=== PATIENT | male | born 2000 | race Caucasian/White ===

== ENCOUNTER 2023-07-15 21:57 | Emergency (ER) | payer BC, SELFPAY ==
[2023-07-15 22:42] VITALS: BP 145/66; PULSE 101; RESP 16; TEMP 37.2; O2SAT 96; BMI 36.3
--- NOTE | 2023-07-16 | ED.ARRPALP ---
HPI - Arrhythmia/Palpitations General Chief Complaint: Unspecified Complaint, Adult Stated Complaint: fast heartbeat Time Seen by Provider: 07/15/23 23:48 History of Present Illness HPI narrative: Patient is a 23-year-old gentleman who smoking marijuana tonight and which is not uncommon for him. Patient felt lightheaded and felt like he was having palpitations which occurred a few times prior to him coming in. Symptoms have now resolved. He is having no chest pain shortness a breath orthopnea no PND no nausea no vomiting. EKG shows sinus rhythm with rate of 102. Patient has no history of cardiovascular disease otherwise been in good health. Related Data Home Medications Medication Instructions Recorded Confirmed No Known Home Medications 07/15/23 07/15/23 Allergies Allergy/AdvReac Type Severity Reaction Status Date / Time No Known Drug Allergies Allergy Verified 07/15/23 22:38 Review of Systems Status of ROS: Reports: 10 or more systems reviewed and unremarkable except as noted in History and below Exam Narrative: Exam Narrative: EXAM GENERAL: Patient appears comfortable and well. EYES: No scleral icterus. ENT: Tympanic membranes and oropharynx normal. THYROID: no thyroid nodules or thyromegaly. LYMPH: No supraclavicular or cervical lymphadenopathy. SKIN: Visible skin seen during exam normal or with benign process only. EXT: No dependent lower extremity pedal edema. HEART: Regular rate and rhythm with no murmurs, rubs, or gallops. LUNGS: Clear to auscultation bilaterally with no crackles or wheezes. ABD: Soft, non tender, non distended. PSYCH: Good eye contact, speech is not pressured. Const: Vital Signs, click to edit/add: Vital Signs - 24 hr 07/15/23 22:42 Temperature 99.0 F Pulse Rate [Pulse Oximeter] 101 H Respiratory Rate 16 Blood Pressure [Ri ght Upper Arm] 145/66 H Pulse Oximetry 96 Oxygen Delivery Me thod Room Air Course Course ED Course: Patient seen and examined. EKG reviewed. Vital Signs Vital signs: Initial Vital Signs Temperature 99.0 F 07/15/23 22:42 Temperature Source Temporal Artery Scan 07/15/23 22:42 Pulse Rate 101 H 07/15/23 22:42 Respiratory Rate 16 07/15/23 22:42 Blood Pressure 145/66 H 07/15/23 22:42 Blood Pressure Mean 92 07/15/23 22:42 Blood Pressure Position Sitting 07/15/23 22:42 Pulse Oximetry 96 07/15/23 22:42 Oxygen Delivery Method Room Air 07/15/23 22:42 Vital Signs Temperature 99.0 F 07/15/23 22:42 Pulse Rate 101 H 07/15/23 22:42 Respiratory Rate 16 07/15/23 22:42 Blood Pressure 145/66 H 07/15/23 22:42 Pulse Oximetry 96 07/15/23 22:42 Oxygen Delivery Method Room Air 07/15/23 22:42 Temperature 99.0 F 07/15/23 22:42 Pulse Rate 101 H 07/15/23 22:42 Respiratory Rate 16 07/15/23 22:42 Blood Pressure 145/66 H 07/15/23 22:42 Pulse Oximetry 96 07/15/23 22:42 Oxygen Delivery Method Room Air 07/15/23 22:42 MDM - Arrhythmia/Palpitations MDM Narrative Medical decision making narrative: Patient is a 83-year-old gentleman who was smoking marijuana when he developed palpitations and potentially panic attack. He is currently asymptomatic. He is well known to me from my clinic practice and at this time we will offer reassurance with close outpatient follow-up with me. If symptoms return he will come to the emergency room her contact me for possible Holter monitor. Differential Diagnosis Differential diagnosis: Likely palpitations, anxiety, sinus tachycardia, artial fibrillation, artial flutter, ventricular premature beats, supraventricular tachycardia, ventricular tachycardia and WPW Discharge Plan Discharge Clinical Impression: Palpitations Condition: Stable Instructions: Heart Palpitations (ED) Additional Instructions: Continue current care Follow-up Dr. Chandler as needed Report any change in symptoms. Activity Level: No Restrictions Discharge Diet: Regular Prescriptions: No Action No Known Home Medications Follow Up/Referrals: Juan Luis German DO [Primary Care Provider] - Stand Alone Forms: [employer] Info Instructions
[2023-07-16 00:11] VITALS: BP 135/74; PULSE 94; RESP 16; TEMP 36.8; O2SAT 96
[2023-07-16 00:14] VITALS: BP 135/74; PULSE 94; RESP 16; TEMP 36.8
== END 2023-07-16 00:14 | disposition home or self-care (01) ==
LOC: ED 07-16 00:12
PROVIDERS: Emergency Provider Internal Medicine
DX: R00.2 Palpitations (principal)
CPT/HCPCS: 93005; 99283; 99284

== ENCOUNTER 2023-07-17 17:35 | Emergency (ER) | payer BC, SELFPAY ==
[2023-07-17 17:41] VITALS: BP 160/80; PULSE 68; RESP 18; TEMP 37; O2SAT 99; BMI 32.3
--- NOTE | 2023-07-17 18:02 | CRLHL7_ITS ---
For Patients: As a result of the Century Cures Act, medical imaging exams and procedure reports are released immediately into your electronic medical record. You may view this report before your referring provider. If you have questions, please contact your health care provider. INDICATION: Chest pain. COMPARISON: None. TECHNIQUE: Chest 2 views. FINDINGS: Lungs are clear. No pleural fusions. No normal thorax. No focal opacities. Normal heart size. Normal mediastinum. No osseous abnormalities. Dictated by Magnus Appiah MD @ 07/17/2023 8:00:27 PM (Electronically Signed)
--- NOTE | 2023-07-17 18:06 | ED_ITS ---
HPI - General Adult General Date Seen: 07/17/23 Chief complaint: Unspecified Complaint, Adult Stated complaint: numb pain around chest Time Seen by Provider: 07/17/23 17:47 Source: patient Mode of arrival: ambulatory Limitations: no limitations History of Present Illness HPI narrative: Patient is a 23-year-old male with no pertinent medical issues presenting to emergency department for chest discomfort. He states he was emergency department 07/15/2023 for chest pain was diagnosed with a panic attack. Since then he states he has been rubbing his chest a lot seen if he can reproduce the symptoms. States he is having some intermittent numbness to his left chest region an intermittent pain underneath his left lower ribs. He was told to come back if symptoms change show has return. Denies fevers, chills, weakness, numbness, lightheadedness, headache, vision changes, abdominal pain, shortness of breath. He did state he felt like the symptoms got worse today while he was working on his family's house. His mother was concerned because she had similar symptoms when she had a gallbladder issue. No other concerns at this time Related Data Home Medications Medication Instructions Recorded Confirmed No Known Home Medications 07/15/23 07/15/23 Allergies Allergy/AdvReac Type Severity Reaction Status Date / Time No Known Drug Allergies Allergy Verified 07/15/23 22:38 Review of Systems Status of ROS: Reports: 10 or more systems reviewed and unremarkable except as noted in History and below [facility] Medical History No significant past medical history Surgical History No significant past surgical history Social History Smoking Status: Never smoker Second hand tobacco smoke exposure: No How often do you have a drink containing alcohol: never How often do you have six or more drinks on one occasion: Never AUDIT-C Alcohol total score: 0 Non-prescribed substance use: marijuana (any form) Exam Narrative: Exam Narrative: Const: Well-nourished, Well-developed, in no distress Eyes: PERRL, no conjunctival injection, and symmetrical lids HENT: Atraumatic external nose and ears. Moist mucous membranes. Neck: Symmetric, trachea midline, No thyromegaly. CVS: RRR, No murmurs or gallops. Peripheral pulses 2+ and equal in all extremities RESP: Unlabored respiratory effort. Clear to auscultation bilaterally. GI: Nontender/Nondistended, No rebound or guarding. MSK:Extremities w/o deformity, Normal Active ROM Skin: Warm, Dry. No rashes or lesions. Neuro: Normal Muscle tone, No focal neurological deficits. Psych: Awake, Alert, & Oriented x3. Appropriate mood and affect. Const: Vital Signs, click to edit/add: Vital Signs - 24 hr 07/17/23 17:41 07/17/23 18:32 07/17/23 18:45 Temperature 98.6 F Pulse Rate 60 65 Pulse Rate [Pulse Oximeter] 68 Respiratory Rate 18 Blood Pressure [Ri ght Upper Arm] 160/80 H Pulse Oximetry 99 99 99 Oxygen Delivery Me thod Room Air 07/17/23 19:00 Temperature Pulse Rate 68 Pulse Rate [Pulse Oximeter] Respiratory Rate Blood Pressure [Ri ght Upper Arm] Pulse Oximetry 98 Oxygen Delivery Me thod Course Vital Signs Vital signs: Initial Vital Signs Temperature 98.6 F 07/17/23 17:41 Temperature Source Temporal Artery Scan 07/17/23 17:41 Pulse Rate 68 07/17/23 17:41 Respiratory Rate 18 07/17/23 17:41 Blood Pressure 160/80 H 07/17/23 17:41 Blood Pressure Mean 106 H 07/17/23 17:41 Pulse Oximetry 99 07/17/23 17:41 Oxygen Delivery Method Room Air 07/17/23 17:41 Vital Signs Temperature 98.6 F 07/17/23 17:41 Pulse Rate 68 07/17/23 17:41 Respiratory Rate 18 07/17/23 17:41 Blood Pressure 160/80 H 07/17/23 17:41 Pulse Oximetry 99 07/17/23 17:41 Oxygen Delivery Method Room Air 07/17/23 17:41 Temperature 98.6 F 07/17/23 17:41 Pulse Rate 68 07/17/23 19:00 Respiratory Rate 18 07/17/23 17:41 Blood Pressure 160/80 H 07/17/23 17:41 Pulse Oximetry 98 07/17/23 19:00 Oxygen Delivery Method Room Air 07/17/23 17:41 Medical Decision Making MDM Narrative Medical decision making narrative: Patient is 20-year-old male otherwise quite bright for chest discomfort. He has tried as intermittent chest numbness and left lower rib pain. Denies any acute midsternal chest pain. He is not sure if this is anxiety related or not. They are also concerned of possible gallbladder issues. Low considering the location of the pain gallbladder problem seem unlikely but will order a CMP. CBC CBC, troponin, EKG, chest x-ray also ordered. Symptoms do not seem consistent with ACS or pneumothorax. He is not short of breath and is PERC negative so PE unlikely. Lab work shows no concerning abnormalities. Chest x-ray was reviewed by myself showing no acute or concerning findings. EKG showed no concerning abnormalities. I am not sure exactly what is causing the symptoms but is not appear to be anything related to the heart. I believe he is safe for discharge and they are agreeable to this plan. Lab Data Labs: Lab Results 07/17/23 07/17/23 Range/Units 18:25 18:46 WBC 10.26 (4.50-11.00) K/uL RBC 5.12 (4.30-5.90) m/uL Hgb 14.9 (13.5-17.5) gm/dL Hct 43.6 (37.0-53.0) % MCV 85 (80-100) fL MCH 29 (26-34) pg MCHC 34 (32-36) gm/dL RDW Coeff of S[place] 12.2 (11.5-15.5) % Plt Count 288 (140-440) K/uL Neut % (Auto) 69.5 (42.0-72.0) % Lymph % (Auto) 24.5 (20-44) % [place] % (Auto) 4.7 (0.0-11.0) % Eos % (Auto) 0.9 (0.0-7.0) % Baso % (Auto) 0.3 (0.0-3.0) % Neut # (Auto) 7.14 H (1.7-7.0) K/uL Lymph # (Auto) 2.51 (0.90-2.90) K/uL [place] # (Auto) 0.50 (0.00-0.90) K/UL Eos # (Auto) 0.09 (0.00-0.50) K/uL Baso # (Auto) 0.03 (0.00-0.30) K/uL Abs Immat Gran (auto) 0.01 (0.00-0.30) K/uL Imm/Tot Granulo (auto) 0.1 % Sodium 140 (135-149) mmol/L Potassium 3.8 (3.6-5.1) mmol/L Chloride 105 (96-114) mmol/L Carbon Dioxide 23 (20-32) mmol/L Anion Gap 12 (7-15) mEq/L BUN 16 (5-24) mg/dL Creatinine 0.8 (0.5-1.5) mg/dL Estimated Creat Clear 162.30 Estimated GFR 128 ml/min Glucose 90 (60-115) mg/dL Calcium 9.9 (8.4-10.6) mg/dL Total Bilirubin 0.9 (0.1-1.5) mg/dL Direct Bilirubin 0.0 (0.0-0.5) mg/dL AST 39 H (12-35) U/L ALT 30 (4-50) U/L Alkaline Phosphatase 64 (40-150) U/L Total Protein 8.2 (6.0-8.3) g/dL Albumin 5.3 H (3.3-5.0) g/dL Lab Acknowledgement Test Added POC Troponin I 0.01 (0.01-0.04) ng/ml Imaging Data Chest x-ray: Radiologist's impression: Lungs are clear. No pleural fusions. No normal thorax. No focal opacities. Normal heart size. Normal mediastinum. No osseous abnormalities. Dictated by Magnus Appiah MD @ 07/17/2023 8:00:27 PM ECG Data Attestation: I personally reviewed and interpreted this ECG as follows: Prior ECG tracings: available for review (07/15/2023) Interpretation: Sinus bradycardia at the rate of 56 beats per minute, normal intervals, normal axis, no ST or T-wave abnormalities. Appears similar previous EKG on file Discharge Plan Discharge Clinical Impression: Atypical chest pain Patient Disposition: Home, Self-Care Condition: Stable Instructions: Noncardiac Chest Pain (ED) Additional Instructions: Follow-up with your primary care provider symptoms persist. Return for new or worsening symptoms. Prescriptions: No Action No Known Home Medications Follow Up/Referrals: Provider,Not a Local [Referring] - Stand Alone Forms: [facility] Info Instructions
[2023-07-17 18:31] LABS: Basophils Absolute Auto 0.03 K/uL (0.00-0.30); Basophils Percent Auto 0.3 % (0.0-3.0); Eosinophils Absolute Auto 0.09 K/uL (0.00-0.50); Eosinophils Percent Auto 0.9 % (0.0-7.0); Hematocrit 43.6 % (37.0-53.0); Hemoglobin* 14.9 gm/dL (13.5-17.5); Immature Granulocytes Abs Auto 0.01 K/uL (0.00-0.30); Immature Granulocytes Pct Auto 0.1 %; Lymphocytes Absolute Auto 2.51 K/uL (0.90-2.90); Lymphocytes Percent Auto 24.5 % (20-44); Mean Corpuscular HGB Conc 34 gm/dL (32-36); Mean Corpuscular Hemoglobin 29 pg (26-34); Mean Corpuscular Volume 85 fL (80-100); Monocytes Percent Auto 4.7 % (0.0-11.0); Neutrophils Absolute Auto 7.14 K/uL (1.7-7.0); Neutrophils Percent Auto 69.5 % (42.0-72.0); Platelet Count* 288 K/uL (140-440); RDW Coefficient of Variation % 12.2 % (11.5-15.5); Red Blood Count 5.12 m/uL (4.30-5.90); White Blood Count* 10.26 K/uL (4.50-11.00)
[2023-07-17 18:32] VITALS: PULSE 60; O2SAT 99
[2023-07-17 18:35] LABS: Slide Review Reflex No
[2023-07-17 18:41] LABS: Troponin, Point-of-Care* 0.01 ng/ml (0.01-0.04)
[2023-07-17 18:45] VITALS: PULSE 65; O2SAT 99
[2023-07-17 18:45] LABS: Chloride* 105 mmol/L (96-114); Potassium* 3.8 mmol/L (3.6-5.1); Sodium* 140 mmol/L (135-149)
[2023-07-17 18:47] LABS: Creatinine* 0.8 mg/dL (0.5-1.5); Estimated Glomerular Filt Rate 128 ml/min
[2023-07-17 18:48] LABS: Anion Gap 12 mEq/L (7-15); Blood Urea Nitrogen* 16 mg/dL (5-24); Calcium* 9.9 mg/dL (8.4-10.6); Carbon Dioxide* 23 mmol/L (20-32); Glucose* 90 mg/dL (60-115)
[2023-07-17 18:54] LABS: Albumin* 5.3 g/dL (3.3-5.0)
[2023-07-17 18:57] LABS: Alanine Aminotransferase* 30 U/L (4-50); Alkaline Phosphatase* 64 U/L (40-150); Aspartate Amino Transferase* 39 U/L (12-35); Bilirubin Total* 0.9 mg/dL (0.1-1.5); Total Protein* 8.2 g/dL (6.0-8.3)
[2023-07-17 19:00] VITALS: PULSE 68; O2SAT 98
== END 2023-07-17 19:16 | disposition home or self-care (01) ==
PROVIDERS: Emergency Provider Student in an Organized Health Care Education/Training Program; PCP Internal Medicine
DX: R07.89 Other chest pain (principal)
CPT/HCPCS: 36415; 71046; 80048; 80076; 84484; 85025; 93005; 99283; 99284

== ENCOUNTER 2025-03-28 07:42 | Outpatient (CLI) | payer BC, SELFPAY | END 2025-03-28 07:43 | disposition home or self-care (01) | PROVIDERS: PCP Family Medicine; Visit Provider Family Medicine | DX: Z00.00 Encounter for general adult medical examination without abnormal findings (principal); F41.9 Anxiety disorder, unspecified; Z13.6 Encounter for screening for cardiovascular disorders; Z13.1 Encounter for screening for diabetes mellitus | CPT/HCPCS: 80061; 82947; 84439; 84443 ==